=== PATIENT | female | born 1985 | race Native Hawaiian/Other Pacific Islander ===

== ENCOUNTER 2019-01-05 12:08 | Emergency (ER) | payer OTHER, MEDICAID, SELFPAY ==
[2019-01-05 12:12] VITALS: BP 166/109; PULSE 96; RESP 20; TEMP 36.9; O2SAT 100; BMI 33.3
[2019-01-05 12:38] LABS: Influenza A and B by PCR Rapid Negative (Negative)
[2019-01-05 13:19] LABS: Amorphous Sediment Urine 1+; Bacteria Urine Moderate (10-30); Culture Indicated Urine Specimen Cultured; Mucus Urine 1+ (Negative); RBC Urine 5-10/HPF (0-5/HPF); Squamous Epithelial Cell Urine 1-5 /HPF (0-5/HPF); WBC Urine 10-30/HPF (0-5/HPF)
--- NOTE | 2019-01-05 13:21 | DI.RAD.S_ITS ---
PROCEDURE: XR CHEST 2V INDICATIONS: cough TECHNIQUE: 2 views of the chest were acquired. COMPARISON: [facility], , CHEST 1 VIEW, 01/22/2017, 13:11. FINDINGS: Surgical changes and devices: None. Lungs and pleura: Lungs are clear. No pleural effusions or pneumothorax. Mediastinum: Mediastinal contours are normal. Heart size is normal. Bones and chest wall: No suspicious bony abnormalities. Soft tissues appear unremarkable. IMPRESSION: Negative chest. No acute cardiopulmonary process is evident. Dictated by: Roberto Manuel M.D. on 01/05/2019 at 12:31 Approved by: Roberto Manuel M.D. on 01/05/2019 at 12:31
--- NOTE | 2019-01-05 13:23 | ED.URI ---
HPI - URI/Sore Throat General Chief Complaint: Upper Respiratory Symptoms Stated Complaint: Hurts to breathe, SOB, Coughing, head spinning Time Seen by Provider: 01/05/19 12:17 Source: patient Mode of arrival: Ambulatory Limitations: no limitations History of Present Illness HPI Narrative: Patient comes emergency department complaining of nonproductive cough, shortness of breath, headache for the last 2 days. She states that her mom has been sick with the same thing home. She denies any nausea or vomiting. No fevers. Patient states that she has felt cold in general. Patient denies any underlying heart or lung disorders. She is not a smoker. She states that she is otherwise healthy. No other complaints at this time. Related Data Previous Rx's Medication Instructions Recorded cyclobenzaprine 10 mg PO TIDP PRN #14 tab 01/22/17 hydrocodone-acetaminophen 0 tab PO Q6HP PRN #15 tab 01/22/17 Allergies Allergy/AdvReac Type Severity Reaction Status Date / Time aspirin [ASPIRIN] Allergy Severe ANAPHALAXIS Unverified 06/13/17 12:26 Penicillins [PENICILLINS] Allergy Unknown RASH Unverified 06/13/17 12:26 Review of Systems Constitutional Constitutional: Denies chills, Denies fatigue, Denies fever(s), Denies frequent falls, Denies lethargy and Denies weakness Eyes Eyes: Denies change in vision, Denies eye discharge, Denies irritation and Denies loss of vision ENT Ears, Nose, Mouth, and Throat: Denies change in voice, Denies dizziness, Denies neck pain, Denies sore throat and Denies throat swelling Cardiovascular Cardiovascular: Denies chest pain, Denies irregular heart rhythm, Denies lightheadedness, Denies palpitations, Reports dyspnea and Denies orthopnea Respiratory Respiratory: Reports cough, Reports dyspnea and Denies wheezing Gastrointestinal Gastrointestinal: Denies abdominal pain, Denies change in bowel habits, Denies diarrhea, Denies nausea and Denies vomiting Genitourinary Genitourinary: Denies hematuria, Denies flank pain, Denies urinary incontinence and Denies urinary urgency Musculoskeletal Musculoskeletal: Denies back pain, Denies muscle weakness, Denies neck pain, Denies numbness and Denies tingling Integumentary/Breasts Skin/Breast: Denies pruritus, Denies erythema, Denies rash and Denies wounds Neurologic Neurologic: Denies behavioral changes, Denies confusion, Denies dizziness, Denies frequent falls, Denies loss of vision, Denies numbness, Denies tingling and Denies weakness Psychiatric Psychiatric: Denies anxiety, Denies behavioral changes, Denies confusion, Denies depression, Denies homicidal ideation and Denies suicidal ideation Endocrine Endocrine: Denies fatigue, Denies flushing and Denies palpitations Hematologic/Lymphatic Hematologic/Lymphatic: Denies easy bruising Allergic/Immunologic Allergic/Immunologic: Denies urticaria, Denies throat swelling and Denies wheezing Patient History Medical History Healthy adult (Acute) Surgical History No pertinent past surgical history (Acute) Social History Smoking Status: Never smoker alcohol intake frequency: holidays/special occasions only Substance Use Type: marijuana Exam Initial Vital Signs Initial Vital Signs: Vital Signs Temperature 98.5 F 01/05/19 12:12 Pulse Rate 96 H 01/05/19 12:12 Respiratory Rate 20 01/05/19 12:12 Blood Pressure 166/109 H 01/05/19 12:12 Pulse Oximetry 100 01/05/19 12:12 Const General: cooperative and well developed Nutritional Appearance: well nourished Orientation: alert, awake, oriented x3 and not confused [facility] Head: normocephalic and atraumatic Ears: external ears normal Nose: external nose normal and No nasal discharge Face and sinus: face symmetric and No dry mucous membranes Mouth: oral mucosae normal and moist mucous membranes Teeth and gingiva: dentition normal Eyes General: appearance normal, both eyes and all related structures Eyelids: eyelids normal Conjunctivae: conjunctivae normal Sclera: sclerae normal Pupils: PERRL EOM: EOM intact bilaterally Neck Neck: normal visual inspection, trachea midline, No lymphadenopathy, No midline deformity and No JVD Lymphatic: No lymphedema Chest Chest: normal inspection of the chest Resp Effort & Inspection: normal respiratory effort, able to speak in complete sentences, no respiratory distress and no use of accessory muscles Auscultation: clear to auscultation bilaterally, no rales, no rhonchi and no wheezes Cardio Rate: regular rate Rhythm: regular rhythm Heart Sounds: no click, no gallops, no murmurs and no rubs Pulses: normal peripheral pulses GI Inspection: non-distended Palpation: soft, no hepatosplenomegaly, No guarding, No pulsatile mass and No tender Auscultation: normal bowel sounds Back/Spine/Pelvis Back: No CVA tenderness Cervical Spine: cervical ROM normal and No pain with cervical ROM Thoracic/Lumbar Spine: thoracic and lumbar spine normal to inspection Skin General: no rashes or lesions noted, No jaundice and No petechiae Neuro General: alert, oriented x3, gait normal and no focal motor deficits Speech: speech normal Extrem General: full ROM, no clubbing, cyanosis or edema, no pedal edema and no calf tenderness Psych Appearance: well kempt Mental Status: mental status grossly normal Attitude: cooperative Thought Content: normal and suicidality Judgment: judgment good Course Course Course Narrative: Patient was worked up with influenza and chest x-ray, and treated with Toradol. Workup was negative. I discussed with the patient that she most likely has a viral illness, which will pass on its own. We have discussed home management the symptoms, as well as the usual indications for return. Orders Ordered: Discontinued Medications Ketorolac Tromethamine (Toradol) 30 mg IM NOW ONE Stop: 01/05/19 13:23 Last Admin: 01/05/19 13:34 Dose: 30 mg Documented by: SHILOH Vital Signs Vital signs: Vital Signs - 8 hr 01/05/19 12:12 Temperature 98.5 F Pulse Rate 96 H Respiratory Rate 20 Blood Pressure 166/109 H Pulse Oximetry 100 MDM - URI/Sore Throat Medical Records Attestation: I reviewed the patient's medical records. Lab Data Attestation: I reviewed the patient's lab results. Labs: Lab Results 01/05/19 01/05/19 Range/Units 12:15 13:00 Urine RBC 5-10/hpf H (0-5/HPF) Urine WBC 10-30/hpf H (0-5/HPF) Ur Squamous Epith Cells 1-5 /hpf (0-5/HPF) Amorphous Sediment 1+ Urine Bacteria Moderate (10-30) H (None) Urine Mucus 1+ H (Negative) Ur Culture Indicated? Specimen cultured Influenza A & B (PCR) Negative (Negative) Urine Dip Bedside Urine Glucose 100 mg/dl Bedside Urine Bilirubin - Negative Bedside Urine Ketone +/- 5 Urine Specific [place] 1.015 Bedside Urine Occult Blood +++ Bedside Urine pH 6.0 Bedside Urine Protein +/- 15 Bedside Urine Urobilinogen - Negative Bedside Urine Nitrite - Negative Bedside Urine Leukocytes ++ 125 Esterase Imaging Data Chest x-ray: Radiologist's impression: PROCEDURE: XR CHEST 2V INDICATIONS: cough TECHNIQUE: 2 views of the chest were acquired. COMPARISON: [facility], , CHEST 1 VIEW, 01/22/2017, 13:11. FINDINGS: Surgical changes and devices: None. Lungs and pleura: Lungs are clear. No pleural effusions or pneumothorax. Mediastinum: Mediastinal contours are normal. Heart size is normal. Bones and chest wall: No suspicious bony abnormalities. Soft tissues appear unremarkable. IMPRESSION: Negative chest. No acute cardiopulmonary process is evident. Dictated by: Roberto Manuel M.D. on 01/05/2019 at 12:31 Approved by: Roberto Manuel M.D. on 01/05/2019 at 12:31 Discharge Plan Departure Patient Disposition: Home Clinical Impression: Upper respiratory infection Qualifiers: URI type: unspecified viral URI Qualified Code(s): J06.9 - Acute upper respiratory infection, unspecified Discharge Date/Time: 01/05/19 14:36 Instructions: DI for Viral Upper Respiratory Infection -- Adult Activity Restrictions/Additional Instructions: Your chest x-ray looks good, and your influenza test is negative. You most likely have 1 of the many viruses that go around this time of year and cause cough and sore throat. there is no evidence of strep throat at this time. Please drink plenty of fluids and get rest. You may take ibuprofen and Tylenol as needed for body aches or fever. Please follow up with your primary care physician if you're not feeling better by the end of the week. Prescriptions: No Action cyclobenzaprine 10 MG tablet 10 mg PO TIDP PRNQty: 14 RF: 0 hydrocodone-acetaminophen 5 MG/325 MG tablet 0 tab PO Q6HP PRNQty: 15 RF: 0 Referrals: [facility] [Provider Group]
[2019-01-05] MEDS: KETOROLAC 60 MG/2 ML VIAL 30 MG IM (13:34)
[2019-01-05 13:43] VITALS: BP 153/102; PULSE 106; RESP 18; O2SAT 100
--- NOTE | 2019-01-05 14:36 | PC.NURSE ---
Upon entering room for discharge patient sleeping, resp even and unlabored. Patient drooling. Patient denies any pain, will call for ride.
== END 2019-01-05 14:36 | disposition home or self-care (01) ==
PROVIDERS: Emergency Provider Emergency Medicine
DX: J06.9 Acute upper respiratory infection, unspecified (principal); R05 Cough; R51 Headache; R06.02 Shortness of breath
CPT/HCPCS: 71046; 81003; 81015; 87077; 87086; 87186; 87502; 96372; 99283; J1885

== ENCOUNTER 2019-07-06 06:23 | Emergency (ER) | payer OTHER, MEDICAID, SELFPAY ==
[2019-07-06 06:31] VITALS: BP 215/118; PULSE 84; RESP 16; TEMP 36.6; O2SAT 98; BMI 29.9
--- NOTE | 2019-07-06 06:33 | ED.DENTAL ---
HPI - Dental/Oral General Chief complaint: Dental/Oral Stated complaint: TOOTHACHE Time Seen by Provider: 07/06/19 06:32 Source: patient Mode of arrival: Ambulatory Limitations: no limitations History of Present Illness HPI Narrative: Patient is a 34-year-old male with right upper dental pain off and on for the past several weeks/months. Has tried [id number] topical preparations such as Orajel without any improvement. Has not seen primary provider or a dentist. No problems breathing. She does have pain behind the right ear. States that the pain is worsened over the past 24 hours. No problems breathing. Is allergic to penicillin and aspirin. Has had Toradol in the past without any problems. Related Data Previous Rx's Medication Instructions Recorded cyclobenzaprine 10 mg PO TIDP PRN #14 tab 01/22/17 hydrocodone-acetaminophen 0 tab PO Q6HP PRN #15 tab 01/22/17 clindamycin HCl 300 mg PO QID 7 Days #28 cap 07/06/19 Allergies Allergy/AdvReac Type Severity Reaction Status Date / Time aspirin [ASPIRIN] Allergy Severe ANAPHALAXIS Unverified 06/13/17 12:26 Penicillins [PENICILLINS] Allergy Unknown RASH Unverified 06/13/17 12:26 Review of Systems Constitutional Constitutional: Denies fever(s) ENT Comments: Right upper tooth pain, pressure behind the right ear, Cardiovascular Cardiovascular: Denies dyspnea Respiratory Respiratory: Denies cough and Denies dyspnea Musculoskeletal Musculoskeletal: Denies myalgias and Denies arthralgias Integumentary/Breasts Skin/Breast: Denies rash Hematologic/Lymphatic Hematologic/Lymphatic: Denies easy bleeding and Denies easy bruising Patient History Medical History Healthy adult (Acute) Social History Smoking Status: Never smoker Smoking Status: Never smoker alcohol intake frequency: holidays/special occasions only Substance Use Type: marijuana Exam Initial Vital Signs Initial Vital Signs: Vital Signs Temperature 98 F 07/06/19 06:31 Pulse Rate 84 07/06/19 06:31 Respiratory Rate 16 07/06/19 06:31 Blood Pressure 215/118 H 07/06/19 06:31 Pulse Oximetry 98 07/06/19 06:31 HENMT Head: normal to inspection and normocephalic Ears: TM's normal bilaterally Nose: external nose normal Mouth: oral mucosae normal Teeth and gingiva: fair dentition Throat: uvula midline and no postnasal drainage Neck Lymphatic: No lymphadenopathy Resp Effort & Inspection: normal respiratory effort Skin Lesions: no lesions Rashes: no rashes Neuro General: alert, awake and oriented x3 Extrem General: normal to inspection and capillary refill normal Course Orders Ordered: Discontinued Medications Acetaminophen (Tylenol) 975 mg PO NOW ONE Stop: 07/06/19 06:45 Last Admin: 07/06/19 06:47 Dose: 975 mg Documented by: JOSE MARIA Clindamycin HCl (Cleocin) 300 mg PO NOW ONE Stop: 07/06/19 06:33 Last Admin: 07/06/19 06:41 Dose: 300 mg Documented by: JOSE MARIA Ketorolac Tromethamine (Toradol) 30 mg IM NOW ONE Stop: 07/06/19 06:33 Vital Signs Vital signs: Vital Signs - 8 hr 07/06/19 06:31 Temperature 98 F Pulse Rate 84 Respiratory Rate 16 Blood Pressure 215/118 H Pulse Oximetry 98 MDM - Dental/Oral MDM Narrative Medical decision making narrative: Tooth number to his cracked. Also has caries in tooth 3. No defined abscess seen on exam. No lymphadenopathy. No problems breathing. Will start the patient on antibiotics. First dose was given in the ER. Was also given Toradol. Patient also hypertensive upon arrival. She has no prior history of hypertension. Is not having chest pain or shortness of breath. This suspect this is secondary to the fact that she was having her blood pressure checked upon my initial evaluation, the fact she does walked in from the parking lot and the fact that she was in pain. Informed her that she should follow-up with her primary doctor regarding this. Discharge Plan Departure Patient Disposition: Home Clinical Impression: Toothache Hypertension Qualifiers: Hypertension type: unspecified Qualified Code(s): I10 - Essential (primary) hypertension Instructions: Essential Hypertension, DI for Dental Pain Activity Restrictions/Additional Instructions: It is important that you follow-up with a dentist regarding your tooth. This is a situation that requires their expertise for definitive treatment. Take the antibiotics as directed. You can take Tylenol for discomfort. You have no restrictions on your diet. Your blood pressure was also elevated today. I recommend that you contact your primary provider for follow-up with regard to this. You do not have a primary provider you can contact our health resources coordinator here at the hospital at [phone]. Prescriptions: New clindamycin HCl 300 mg capsule 300 mg PO QID 7 Days Qty: 28 RF: 0 No Action cyclobenzaprine 10 MG tablet 10 mg PO TIDP PRNQty: 14 RF: 0 hydrocodone-acetaminophen 5 MG/325 MG tablet 0 tab PO Q6HP PRNQty: 15 RF: 0
[2019-07-06] MEDS: CLINDAMYCIN 150 MG CAPSULE 300 MG PO (06:41)
[2019-07-06] MEDS: ACETAMINOPHEN 325 MG TABLET 975 MG PO (06:47)
--- NOTE | 2019-07-06 06:49 | PC.NURSE ---
dental carries present in painful tooth
--- NOTE | 2019-07-06 06:50 | PC.NURSE ---
when asked if patient has taken the prescribed pain medication before she states she has taken tramadol before. Patient uncertain what T letter medication she has taken for pain before with no reaction. Provider notified and changes order to Tylenol.
[2019-07-06 07:05] VITALS: BP 183/123; PULSE 67; RESP 15; O2SAT 100
== END 2019-07-06 07:19 | disposition home or self-care (01) ==
LOC: ED 07:03
PROVIDERS: Emergency Provider Emergency Medicine
DX: K08.89 Other specified disorders of teeth and supporting structures (principal); I10 Essential (primary) hypertension
CPT/HCPCS: 99283

== ENCOUNTER 2020-09-27 11:48 | Emergency (ER) | payer OTHER, MEDICAID, SELFPAY ==
[2020-09-27 11:58] VITALS: BP 195/125; PULSE 112; RESP 14; TEMP 36.7; O2SAT 100; BMI 29.2
== END 2020-09-27 13:13 | disposition left against medical advice (07) ==
PROVIDERS: Emergency Provider Emergency Medicine
CPT/HCPCS: 99281